=== PATIENT | female | born 1990 | race Caucasian/White ===

== ENCOUNTER 2016-09-29 14:27 | Emergency (ER) | payer SELFPAY ==
[~2016-09-29] VITALS: Ht 180.3 cm; Wt 131.5 kg
[~2016-09-29 14:27] MED LIST: AUGMENTIN875 MG PO; FLINTSTONES1 TABLET PO; MUCINEX D ER T1 EACH PO; NAPROSYN500 MG PO; NOHOMEMEDS; no home meds
[2016-09-29 16:40] LABS: HEMATOCRIT 38.6 % (36.0-46.0); MCH 26.6 PG (29.0-34.0); MCHC 33.2 G/DL (30.0-36.0); MCV 80.1 FL (83-99); MEAN PLAT.VOLUME 10.5 uM^3 (9.5-12.4); PLATELET COUNT 249 K/uL (156-360); RBC DIS.WIDTH-CV 14.3 % (11.8-14.6); RED BLOOD COUNT 4.82 M/uL (3.80-5.20); WHITE BLOOD COUNT 14.2 K/uL (4.1-10.2)
[2016-09-29 16:47] LABS: CHLORIDE 103 mEq/L (99-109); POTASSIUM 4.1 mEq/L (3.7-5.4); SODIUM 136 mEq/L (136-147)
[2016-09-29 16:50] LABS: GLUCOSE 103 mg/dL (70-99)
[2016-09-29 16:51] LABS: ANION GAP 12 MEQ/L (2-14)
[2016-09-29 16:53] LABS: ALKALINE PHOSPHATASE 81 IU/L (3-129); GFR ESTIMATE (CALCULATED) > 59 mL/min/
[2016-09-29 16:54] LABS: UREA NITROGEN (BUN) 6 mg/dL (9-23)
[2016-09-29 17:03] LABS: QUANTITATIVE HCG < 4.0 MIU/ML
[2016-09-29 17:24] LABS: TROP-I INTERPRETATION NEGATIVE; TROPONIN-I < 0.01 ng/mL (0.0-0.30)
[2016-09-29 17:33] LABS: TOTAL BILIRUBIN 0.8 mg/dL (0.0-1.0)
[2016-09-29 17:35] LABS: INTERNAL CONTROL VALID? YES; MONOSPOT (MONONUCLEOSIS SEROL) NEGATIVE
[2016-09-29 17:50] LABS: ADD MIUA? YES; BILIRUBIN NEGATIVE; BLOOD NEGATIVE; COLOR YELLOW ((YELLOW)); GLUCOSE (STRIP) NEGATIVE; KETONES NEGATIVE; LEUKOCYTES MODERATE; NITRITE NEGATIVE; PH, URINE 7.5 (5-8); PROTEIN (STRIP) NEGATIVE; SPECIFIC GRAVITY 1.006 (1.000-1.030)
[2016-09-29 18:06] LABS: RED BLOOD CELLS NONE SEEN /HPF (0-5)
[2016-09-29 18:08] LABS: BACTERIA NONE SEEN; CASTS NONE SEEN /LPF; CRYSTALS NONE SEEN; EPITHELIAL CELLS 1+; MUCUS NONE SEEN; UCUL ADDED? NO
[2016-09-29 18:53] LABS: D-DIMER ELISA 0.63 mg/L FEU (< 0.57)
[2016-09-29 19:59] LABS: TROP-I INTERPRETATION NEGATIVE; TROPONIN-I 0.01 ng/mL (0.0-0.30)
[2016-09-29 21:43] VITALS: BP 122/75
[2016-09-29 22:15] LABS: INFLUENZA A VIRAL ANTIGEN NEGATIVE; INFLUENZA B VIRAL ANTIGEN NEGATIVE
== END 2016-09-29 21:44 | disposition home or self-care (01) ==
LOC: EME 14:27
PROVIDERS: Physician Assistant
DX: R10.11 Right upper quadrant pain (principal); R10.13 Epigastric pain; R50.9 Fever, unspecified; R07.89 Other chest pain
CPT/HCPCS: 71020; 71275; 80053; 81003; 84484; 84702; 85027; 85379; 86308; 87502; 87651 90; 93005; 99281; 99284; J1885; J2405; J7030

== ENCOUNTER → 2016-09-30 | Outpatient (CLI) | payer SELFPAY | END | disposition home or self-care (01) | LOC: RAD 08:00 | DX: R10.813 Right lower quadrant abdominal tenderness (principal); R50.9 Fever, unspecified; D72.829 Elevated white blood cell count, unspecified | CPT/HCPCS: 74176 ==

== ENCOUNTER 2017-04-06 19:21 | Emergency (ER) | payer BC ==
[~2017-04-06] VITALS: Ht 180.3 cm; Wt 133.0 kg
[2017-04-06 20:31] LABS: ADD MIUA? YES; BILIRUBIN NEGATIVE; BLOOD NEGATIVE; COLOR YELLOW ((YELLOW)); GLUCOSE (STRIP) NEGATIVE; KETONES 5; LEUKOCYTES NEGATIVE; NITRITE NEGATIVE; PROTEIN (STRIP) 30; SPECIFIC GRAVITY 1.016 (1.000-1.030); UROBILINOGEN 0.2 MG/DL (0.2-1.0)
[2017-04-06 20:34] LABS: BACTERIA RARE /HPF; EPITHELIAL CELLS RARE /HPF; MUCUS NONE SEEN /LPF; RED BLOOD CELLS 0-5 /HPF (0-5); WHITE BLOOD CELLS 0-5 /HPF (0-5)
[2017-04-06] MEDS ORDERED: REGLAN10 MG PO (22:31)
[2017-04-06] MEDS ORDERED: NAPROSYN500 MG PO (22:31)
[2017-04-06] MEDS ORDERED: IMITREX50 MG PO (22:31)
[2017-04-06 23:26] VITALS: BP 147/86
== END 2017-04-06 23:27 | disposition home or self-care (01) ==
LOC: EME 19:21
PROVIDERS: Physician Assistant
DX: G43.909 Migraine, unspecified, not intractable, without status migrainosus (principal)
CPT/HCPCS: 70450; 81003; 99281; 99284; J1885; J2765; J2930

== ENCOUNTER 2018-04-06 17:57 | Emergency (ER) | payer BC ==
[~2018-04-06] VITALS: Ht 177.8 cm; Wt 134.6 kg
[~2018-04-06 17:57] MED LIST changes: +IMITREX50 MG PO; +REGLAN10 MG PO
[2018-04-06 19:10] LABS: HEMATOCRIT 36.2 % (36.0-46.0); HEMOGLOBIN 11.8 G/DL (11.9-15.5); MCH 26.3 PG (29.0-34.0); MCHC 32.6 G/DL (30.0-36.0); MCV 80.6 FL (83-99); RBC DIS.WIDTH-CV 14.5 % (11.8-14.6); RBC DIS.WIDTH-SD 42.1 % (39-53); RED BLOOD COUNT 4.49 M/uL (3.80-5.20); WHITE BLOOD COUNT 10.9 K/uL (4.1-10.2)
[2018-04-06 19:19] LABS: CHLORIDE 106 mEq/L (99-109); POTASSIUM 4.2 mEq/L (3.7-5.4); SODIUM 141 mEq/L (136-147)
[2018-04-06 19:20] LABS: GLUCOSE 84 mg/dL (70-99)
[2018-04-06 19:24] LABS: CREATININE 0.8 mg/dL (0.6-1.3); GFR ESTIMATE (CALCULATED) > 59 mL/min/
[2018-04-06 19:25] LABS: UREA NITROGEN (BUN) 10 mg/dL (9-23)
[2018-04-06 20:03] LABS: PLAT.SUFFICIENCY ADEQUATE; PLATELET COUNT 294 K/uL (156-360)
[2018-04-06] MEDS ORDERED: INDOCIN50 MG PO (20:22)
[2018-04-06 21:22] LABS: CREATINE KINASE 103 IU/L (1-294)
[2018-04-06 22:00] VITALS: BP 159/86
== END 2018-04-06 22:00 | disposition home or self-care (01) ==
LOC: EME 17:57
PROVIDERS: Physician Assistant
DX: M77.8 Other enthesopathies, not elsewhere classified (principal); M25.552 Pain in left hip; Z88.6 Allergy status to analgesic agent
CPT/HCPCS: 73502; 80048; 82550; 85027; 99281; 99284